=== PATIENT | male | born 1980 | race Caucasian/White ===

== ENCOUNTER 2016-10-17 04:03 | Emergency (ER) | payer BC, SELFPAY ==
[~2016-10-17] VITALS: Ht 177.8 cm; Wt 99.2 kg
[2016-10-17 04:04] VITALS: BP 147/92
[2016-10-17 06:27] LABS: ASPARTATE AMINO TRANSFERASE 26 U/L (15-37); BLOOD UREA NITROGEN 23 mg/dL (7-18)
== END 2016-10-17 07:54 | disposition home or self-care (01) ==
LOC: ED 06:07
DX: K92.0 Hematemesis (principal); R11.10 Vomiting, unspecified
CPT/HCPCS: 36415; 80053; 85025; 99284